=== PATIENT | male | born 1955 | race Caucasian/White ===

== ENCOUNTER 2019-01-18 07:46 | Day surgery (SDC) | payer BC ==
[2019-01-18] MEDS ORDERED: LIDOCAINE 2% MDV (20MG/ML) 20ML VIAL IV ONE (07:47)
[2019-01-18] MEDS ORDERED: PROPOFOL 10 MG/ML VIAL IV ONE (07:47)
--- NOTE | 2019-01-19 08:30 | Operative Note ---
DATE OF SURGERY: 01/18/2019 OPERATION: COLONOSCOPY with cold snare polypectomy x4. PREOPERATIVE DIAGNOSIS: Colon cancer screening. POSTOPERATIVE DIAGNOSIS: Multiple colon polyps. PROCEDURE: After informed consent was obtained from the patient, he was placed in the left lateral decubitus position in the endoscopy suite, sedated and monitored by the department of anesthesia. Digital rectal exam was unremarkable. A well-lubricated MAS005 colonoscope was inserted into the rectum and advanced to the cecum. The cecum, cecal bulb, and ileocecal valve were seen and were unremarkable. In the ascending colon, there was a 5-6 mm sessile polyp. It was removed with a cold snare and was retrieved. Minimal bleeding was noted. The remainder of the ascending colon was unremarkable. There was a 5-6 mm sessile transverse colon polyp removed with a cold snare. Minimal bleeding was noted after this polyp had been removed with a cold snare. Two descending colon polyps ranging in size from 4-6 mm were observed and removed with a cold snare. Minimal bleeding was noted after each of these polyps had been removed. Cold snare was utilized for the descending colon polyps as well. The sigmoid colon and rectum were unremarkable. J-turn views of the anorectum were unrevealing. The endoscope was straightened, the rectal ampulla deflated, and the endoscope was removed. RECOMMENDATIONS: We will await the results of tissue histology. Would expect the patient will require repeat exam in 3 years based on the fact that he has greater than 2 adenomas. As always, thank you for allowing me to participate in the healthcare of your patients. CC: MD KEYLA Naranjo
== END 2019-01-18 09:30 | disposition home or self-care (01) ==
LOC: HOP 07:46
PROVIDERS: ATTEND Internal Medicine Gastroenterology
DX: Z12.11 Encounter for screening for malignant neoplasm of colon (principal); D12.2 Benign neoplasm of ascending colon; D12.4 Benign neoplasm of descending colon; D12.3 Benign neoplasm of transverse colon